=== PATIENT | female | born 1960 | race African-American/Black ===

== ENCOUNTER 2016-10-18 19:17 | Emergency (ER) | payer SELFPAY ==
[~2016-10-18] VITALS: Ht 134.6 cm; Wt 51.3 kg
[2016-10-18 20:39] VITALS: BP 175/83
--- NOTE | 2016-10-18 20:44 | Emergency Room Report ---
History of Present Illness General Chief Complaint: General Complaint Source: Patient Present Illness HPI 55-year-old female presents the emergency department complaining of numbness in bilateral hands localized primarily to digits one through 3 bilaterally. Patient states symptoms have been going on for 2 weeks denies history of trauma fall or neck injury. Patient denies erythema. She reports she has been told she is borderline diabetic but denies history of diabetes. Patient reports intermittent numbness and tingling in the bilateral feet, denies sensations in the feet at this time. Patient also reports history of intermittent reflux and states that she has had more prominent reflux symptoms over the course of the last 3 days. denies hx of neoplastic disease. Patient reports burning sensation that migrates up through into the mouth worsen at night before bed. She denies strenuous activities, polyuria polydipsia, night fevers chills or recent illness. Denies gross loss of sensation or loss of gross motor movements of the extremities, incontinence of bowel or bladder. Denies CP, Palpitations, LOC, AMS, dizziness, Changes in Vision, Sensation, paresthesias, or a sudden severe headache. She has a history of hypertension and is prescribed amlodipine however she does not like to take the full dosage that she is prescribed and states that she only takes a half in the mornings. Allergies: Coded Allergies: PENICILLINS (Verified Allergy, Unknown, 10/18/16) Patient History Past Medical History: see triage record Past Surgical History: none Pertinent Family History: none Now: No Reviewed Nursing Documentation: PMH: Agreed, PSxH: Agreed Nursing Documentation-PMH Hx Hypertension: Yes Review of Systems All Other Systems: negative except mentioned in HPI Physical Exam Vital Signs Date Time Temp Pulse Resp B/P Pulse Ox O2 Delivery O2 Flow Rate FiO2 10/18/16 20:09 97.5 104 17 182/115 98 Room Air Sp02 EP Interpretation: abnormal - tachycardic and elevated BP - pt states she has not been taking full dose of BP meds. General Appearance: normal inspection, well appearing, no apparent distress, alert, GCS 15, non-toxic Head: normocephalic, atraumatic Eyes: bilateral eye PERRL, bilateral eye normal inspection ENT: hearing grossly normal, normal pharynx, no angioedema, normal voice, TMs + canals normal, uvula midline Neck: full range of motion, no meningismus, no bony tend, supple/symm/no masses Respiratory: chest non-tender, lungs clear, normal breath sounds, speaking full sentences Cardiovascular #1: regular rate, rhythm, no edema, normal capillary refill Musculoskeletal: back normal, gait/station normal, normal range of motion Neurologic: alert, oriented x3, responsive, motor strength/tone normal, sensory intact, cerebellar normal, normal gait, speech normal, no pronator, other - negative hoffmans Psychiatric: judgement/insight normal, memory normal, mood/affect normal, no suicidal/homicidal ideation Skin: normal color, no rash, warm/dry, well hydrated Lymphatic: no adenopathy Medical Decision Making PA Attestation Dr. Bhatti is my supervising Physician whom patient management has been discussed with. Diagnostic Impression: Primary Impression: Paresthesia of both hands Additional Impression: Mild acid reflux ER Course 55-year-old female presents the emergency department complaining of numbness in bilateral hands localized primarily to digits one through 3 bilaterally. Patient states symptoms have been going on for 2 weeks denies history of trauma fall or neck injury. Patient denies erythema. She reports she has been told she is borderline diabetic but denies history of diabetes. Patient reports intermittent numbness and tingling in the bilateral feet, denies sensations in the feet at this time. Patient also reports history of intermittent reflux and states that she has had more prominent reflux symptoms over the course of the last 3 days. denies hx of neoplastic disease. Patient reports burning sensation that migrates up through into the mouth worsen at night before bed. She denies strenuous activities, polyuria polydipsia, night fevers chills or recent illness. She has a history of hypertension and is prescribed amlodipine however she does not like to take the full dosage that she is prescribed and states that she only takes a half in the mornings. Ddx considered but are not limited to uropathy, paresthesia, electrolyte imbalance, cardiac dysrhythmia, stroke, DVT, cyanocobalamin deficiency. nerve palsy, neuritis Vital signs: pt has elevated BP, remaining VS are WNL, pt. is afebrile H&PE are most consistent with paresthesias , possibly vitamin deficiency, no hx of trauma. no focal neurological deficit on PE. ORDERS: none required at this time, the diagnosis is clinical, no bony TTP of the affected extremities, or the C-spine. ED INTERVENTIONS: None required at this time. - D/w pt. to follow up with Neurologist if conservative treatment does not relieve symptoms or for further evaluation. I do not suspect an emergent condition at this time. with current presentation pt. is stable for close outpatient follow up. DISCHARGE: At this time pt. is stable for d/c to home. Will provide printed patient care instructions, and any necessary prescriptions. Care plan and follow up instructions have been discussed with the patient prior to discharge. Last Vital Signs Date Time Temp Pulse Resp B/P Pulse Ox O2 Delivery O2 Flow Rate FiO2 10/18/16 20:09 97.5 104 17 182/115 98 Room Air Disposition: HOME, SELF-CARE Condition: Stable Scripts Ranitidine Hcl* (ZANTAC*) 150 Mg Tablet 150 MG ORAL TWICE A DAY for 30 Days, #60 TAB Prov: Gina Cowan 10/18/16 Multivitamins* (MULTIVITAMINS*) 1 Each Tablet 1 TAB ORAL DAILY for 30 Days, #30 TAB 0 Refills Prov: Gina Cowan 10/18/16 Referrals: NOT CHOSEN IPA/,REFERRING (PCP) Patient Instructions: Gastroesophageal Reflux Disease, Adult, [id number], Paresthesia, [id number] Additional Instructions: Take medications as directed. Follow up with PCP in 3-5 days -- recommend lab work to evaluate vitamin deficiencies and DM. Return sooner to ED if new symptoms occur, or current symptoms become worse. - Please note that this Emergency Department Report was dictated using [employer] c[employer] technology software, occasionally this can lead to erroneous entry secondary to interpretation by the dictation equipment. Gina Cowan Oct 18, 2016 20:44
[2016-10-18] MEDS ORDERED: MULTIVITAMINS1 EAC2 ORAL (20:45)
[2016-10-18] MEDS ORDERED: ZANTAC150 MG ORAL (20:45)
[2016-10-18 20:55] VITALS: BP 175/83
== END 2016-10-18 20:55 | disposition home or self-care (01) ==
LOC: EMR 20:15
DX: R20.8 Other disturbances of skin sensation (principal); K21.9 Gastro-esophageal reflux disease without esophagitis; I10 Essential (primary) hypertension; Z88.0 Allergy status to penicillin
CPT/HCPCS: 99284